=== PATIENT | female | born 1960 | race Caucasian/White ===

== ENCOUNTER 2017-08-21 14:25 | Outpatient (CLI) | payer BC ==
--- NOTE | 2017-08-21 17:43 | RAD ---
CHEST TWO VIEWS: 08/21/17 Comparison is made with an 01/16/16 study. COPD is present with flattening of the diaphragm. The heart size is normal and the mediastinum was unremarkable. No acute infiltrates are seen. The trachea is m idline. IMPRESSION: COPD, but no acute findings. POS: HOME
== END 2017-08-21 14:26 | disposition home or self-care (01) ==
LOC: BURRAD 14:25
PROVIDERS: ATTEND Family Medicine
DX: J44.9 Chronic obstructive pulmonary disease, unspecified (principal)
CPT/HCPCS: 71046

== ENCOUNTER 2017-11-04 18:48 | Emergency (ER) | payer BC ==
[2017-11-04] MEDS ORDERED: Ketorolac Tromethamine 60 MG/2 ML VIAL ONE (19:13)
== END 2017-11-04 19:22 | disposition home or self-care (01) ==
LOC: BURERS 18:48
DX: M54.5 Low back pain (principal); I10 Essential (primary) hypertension; M19.90 Unspecified osteoarthritis, unspecified site; F17.210 Nicotine dependence, cigarettes, uncomplicated; Z79.899 Other long term (current) drug therapy
CPT/HCPCS: 96372; J1885

== ENCOUNTER 2018-04-08 08:42 | Emergency (ER) | payer BC ==
[2018-04-08] MEDS ORDERED: Dexamethasone 4 MG TAB ONE (09:16)
[2018-04-08] MEDS ORDERED: AMOXicillin 250 MG CAP ONE (09:16)
--- NOTE | 2018-04-13 05:40 | PQF ---
[facility] POST DISCHARGE CLINICAL DOCUMENTATION IMPROVEMENT CLARIFICATION FORM l Todays Date 04/12/2018 l Patients Name Christin Aguiar MR [id number] l Acct #N [id number] l Admit Date 04/08/2018 l Disch Date 04/08/2018 [employer] Name Dwayne Collazojustin Email: [email or web address] Cell: To be completed by [employer]: Present Clinical Indicators - Signs / Symptoms Results and Location in Medical Record [ ] Documentation of: unspecified Bronchitis [ ] [ ] [ ] [ ] [ ] [ ] [ ] [ ] Risks [ ] [ ] [ ] Treatment [ ] Bronchitis Query for Specificity of Acute or Chronic of Bronchitis. [ ] [ ] To be completed by Physician: DR. Thais DO, Joseph The documentation in this patients record requires clarification to ensure coding compliance and accuracy. Check the appropriate box and include in your discharge summary. [ ] [ ] [ ] [ ] Please check this box if this does not apply to this patient [ ] Unable to determine [ ] Other diagnosis: Review the following information and exercise your independent professional judgment in responding to the clarification. Based upon the clinical findings, risk factors, and treatment, please clarify if you are treating one of the above probable or suspected diagnoses. Physician Signature: Date Time MTDD
== END 2018-04-08 09:21 | disposition home or self-care (01) ==
LOC: BURERS 08:42
DX: J32.9 Chronic sinusitis, unspecified (principal); J40 Bronchitis, not specified as acute or chronic; I10 Essential (primary) hypertension; M19.90 Unspecified osteoarthritis, unspecified site; F17.210 Nicotine dependence, cigarettes, uncomplicated; Z79.899 Other long term (current) drug therapy
CPT/HCPCS: 99282; J8540

== ENCOUNTER 2018-12-05 16:43 | Emergency (ER) | payer BC ==
[2018-12-05] MEDS ORDERED: Ibuprofen 200 MG TAB ONE ×2 (17:12→17:14)
--- NOTE | 2018-12-05 23:05 | RAD ---
LEFT ANKLE THREE VIEWS: Date: 12-05-18 FINDINGS: On the AP view the distal fibula is unremarkable in appearance. On the oblique view, there were some questionable irregularities and lines in the distal fibular shaft, but in the absence of virtually an y soft tissue swelling over this point, I feel the findings are more likely due to old trauma than ne w. There does not seem to be any soft tissue swelling whatsoever over this region, or in area of slig ht irregularity seen posteriorly on the lateral view. IMPRESSION: No definite acute findings. Possible old trauma to the distal fibula. If pain persists, then delayed follow up images should be considered. POS: HOME
== END 2018-12-05 17:43 | disposition home or self-care (01) ==
LOC: BURERS 16:43
DX: S90.02XA Contusion of left ankle, initial encounter (principal); I10 Essential (primary) hypertension; F17.210 Nicotine dependence, cigarettes, uncomplicated; W20.8XXA Other cause of strike by thrown, projected or falling object, initial encounter